=== PATIENT | male | born 2000 | race Caucasian/White ===

== ENCOUNTER 2024-01-07 01:10 | Emergency (ER) | payer BC ==
[~2024-01-07] VITALS: Ht 175.3 cm; Wt 72.7 kg
[2024-01-07 01:12] VITALS: TEMP 97.7
[2024-01-07 01:54] VITALS: BP 141/86; PULSE 96
== END 2024-01-07 01:54 | disposition home or self-care (01) ==
LOC: COL.ER 01:10
DX: S01.81XA Laceration without foreign body of other part of head, initial encounter (principal); W18.30XA Fall on same level, unspecified, initial encounter; W22.09XA Striking against other stationary object, initial encounter